=== PATIENT | male | born 1990 | race Caucasian/White ===

== ENCOUNTER → 2022-05-25 | Outpatient (CLI) | payer BC ==
--- NOTE | 2022-05-26 04:19 | MR ---
EXAMINATION TYPE: MR hip LT wo con DATE OF EXAM: 05/25/2022 COMPARISON: None HISTORY: Left hip pain. Multiplanar multiecho imaging of the pelvis and left hip with no contrast. The pelvic ring is intact. Proximal femurs are intact. There is normal signal pattern in the proximal femurs. No evidence of avascular necrosis. No evidence of a soft tissue mass. The bladder distends s moothly. No free fluid in the pelvis. Sacroiliac joints appear normal. Presacral soft tissues appear intact. The hip joint fluid appears normal. Acetabula appear intact. Hip joint spaces appear normal. IMPRESSION: Normal MR scan of the pelvis and left hip.
== END | disposition home or self-care (01) ==
LOC: RADMRIMAIN 20:15
PROVIDERS: ATTEND Orthopaedic Surgery
DX: M25.552 Pain in left hip (principal)